=== PATIENT | female | born 1950 | race Caucasian/White ===

== ENCOUNTER 2018-01-22 05:28 | Inpatient (IN) ==
[2018-01-22] MEDS ORDERED: Chlorhexidine 4% Topical 120 APPLIC/120 ML Bottle TOPICAL SCH (06:00)
[2018-01-22] MEDS ORDERED: Vancomycin Inj 1 GM/200 ML PIGGYBACK IV.SIG SCH (06:00)
[2018-01-22] MEDS ORDERED: ceFAZolin 2 GM Premix Inj 2 GM/50 ML PIGGYBACK IV.SIG SCH (06:00)
[2018-01-22] MEDS ORDERED: Sodium Chlor 0.9% Inj 500 ML IV.SIG SCH (06:00)
[2018-01-22] MEDS ORDERED: Metoprolol Tartrate 25 MG Tablet PO SCH (06:00)
[2018-01-22] MEDS ORDERED: Chlorhexidine Gluconate 2% 1 Pack (2 Cloths) TOPICAL SCH (06:00)
[2018-01-22] MEDS ORDERED: Bupivacaine/Dextrose 0.75% Inj 2 ML Ampul ONE (07:08)
[2018-01-22] MEDS ORDERED: Bupivacaine Liposomal PF 1.3% Inj 20 ML Vial ONE (07:22)
[2018-01-22] MEDS ORDERED: TRANEXAMIC ACID IV.SIG SCH ×2 (07:30→10:30)
[2018-01-22] MEDS ORDERED: ceFAZolin Inj 2,000 MG in Sodium Chlor 0.9% Inj 100 ML IV.SIG SCH (07:30)
[2018-01-22] MEDS ORDERED: SODIUM CHLOR 0.9% IV.SIG SCH ×2 (07:30→10:30)
[2018-01-22] MEDS ORDERED: Sodium Chlor 0.9% Inj 40 ML, Bupivacaine Liposo PF 1.3% Inj 20 ML P-ARTICULR SCH ×2 (07:30)
[2018-01-22] MEDS ORDERED: Bupivacaine/Epinephrine 0.5% Inj 50 ML Vial ONE (07:51)
--- NOTE | 2018-01-22 09:53 | P.OP ---
- Preoperative Diagnosis (1) Osteoarthritis of left knee - Postoperative Diagnosis (1) Osteoarthritis of left knee Date of procedure: 01/22/18 Procedure: Left total knee arthroplasty Implants: Depuy Attune size 6 cemented femoral stem, size 5 cemented rotating platform tibial base with a size 6 rotating platform tibial insert and a 35 mm cemented patellar dome Anesthesia: jason WEI Surgeon: Julio Awan MD Cabin Crew: Liz Toscano (Ashley) Cabin Crew: Liz Toscano PA-C (Ashley) The surgical procedure was assisted by my physician's radiology practitioner assistant. Her presence was necessary throughout the case for manipulation and positioning of the surgical extremity. My PA was assisting me throughout the duration of this procedure. The skill set of the physician radiology practitioner assistant was medically necessary to complete this procedure. During the surgical case the surgical technician was working at the back table and the physician radiology practitioner assistant was directly assisting me. Estimated blood loss (mL): 100 Pathology: none sent Operation and Findings: Indications: This 67-year-old female has a long progressive history of bilateral knee pain. She has had several treatment modalities. She is severely limited in her activity and now is unresponsive to nonoperative measures. X-rays are consistent with advanced osteoarthritis. Given the alternatives to treatment she presents for a left total knee arthroplasty which is the more symptomatic. Procedure and findings: The patient was taken to the operative suite and after undergoing an adequate level of general anesthesia was kept supine on the operating table. Preoperative antibiotics consisted of Ancef 2 g and vancomycin 1 g IV. The left lower extremity was then prepped and draped in usual sterile fashion with alcohol and Hibiclens. A standard anterior approach the knee was made with incision centered over the medial one third of the patella. This was carried down through skin and subcutaneous tense tissue with a knife. The quadricep tendon was identified proximally and the patellar tendon distally. A medial parapatellar arthrotomy was made. A small joint effusion was evacuated. Upon entering the knee joint is noted to be marked degenerative changes which were tricompartmental in nature. The remnant of the ACL was excised. The menisci were excised. Osteophytes were removed. Attention was first focused on the distal femur where an intramedullary guide was used to make a 5 valgus cut. A sizing jig was then applied and a 6 selected. With the cutting block in place the anterior, posterior and chamfer cuts were made. Attention was then focused on the proximal tibia. An extramedullary guide was used. Approximately 4 mm of bone was resected. The varus/valgus alignment was also checked with an extramedullary guide. The tibia was then sized to a 5. A freehand technique was utilized on the patella. This was sized to a 35. Drill holes were made and trial components placed. The 6 mm tibial bearing gave the best range of motion and stability. There was slight lateral patellar tracking. A lateral release was completed with an electrocautery device. These components were therefore selected. The femoral drill holes were made. The tibial cement punches were made. The wound was thoroughly irrigated with pulse lavage. Bone cement was prepared on the back table. After thorough drying it was applied to the proximal tibia. The tibial component was then impacted in the place. All excess bone cement was removed. Bone cement was then applied to the distal femur after thorough drying. The femoral component was then impacted in the place. All excess bone cement was removed. A trial tibial insert was then placed. The knee was then placed in full extension for further compression. After thorough drying bone cement was applied to the undersurface of the patella. The patellar button was seated and held with a compression clamp. All excess bone cement was removed. Once the cement had matured good range of motion, patellar tracking and stability was again noted. The size 6 rotating platform tibial insert was then seated. The wound was again thoroughly irrigated with pulse lavage. AutoVac drains were left in place. The incision was closed in layers utilizing #1 Vicryl suture on the extensor mechanism, 0 Vicryl suture on the deep tissue, 2-0 Vicryl suture on the subcutaneous tissue and flores on the skin. Sterile dressings were applied the patient was awakened transferred to the hospital bed and taken to the recovery room in stable condition.
[2018-01-22] MEDS ORDERED: Post-op Orders (for Pharmacy) OTHER STA (09:55)
[2018-01-22] MEDS ORDERED: *Meperidine Inj 25 MG/ML Vial PERIprocedural Use ONLY ONE (09:56)
[2018-01-22] MEDS ORDERED: fentaNYL Citrate Inj 100 MCG/2 ML Ampul ONE (10:00)
[2018-01-22] MEDS ORDERED: Morphine Inj 4 MG/ML Vial ONE (10:00)
[2018-01-22] MEDS ORDERED: Bisacodyl 10 MG Supp RECTAL PRN (10:02)
[2018-01-22] MEDS ORDERED: Morphine Inj 4 MG/ML Vial IV.PUSH PRN (10:02)
[2018-01-22] MEDS ORDERED: Acetaminophen 325 MG Tablet PO PRN (10:02)
[2018-01-22] MEDS ORDERED: hydroCHLOROthiazide 25 MG Tablet PO PRN (10:07)
--- NOTE | 2018-01-22 10:45 | XR ---
EXAM DATE: 01/22/2018 10:40 AM EDT AGE/SEX: 67 years / Female INDICATIONS: Post op left knee surgery. CLINICAL DATA: This is the patient's initial encounter. Patient reports that signs and symptoms have been present for 1 day and indicates a pain score of 6/10. MEDICAL/SURGICAL HISTORY: None. None. COMPARISON: No prior exams available for comparison. FINDINGS: There is previous left total knee replacement. Skin flores anteriorly. Air and fluid in the soft tis sues. Drains are present anteriorly. There is normal alignment. CONCLUSION: Postoperative left total knee replacement. Normal alignment. Electronically signed by: Dutch Valentin MD 01/22/2018 10:44 AM EDT
[2018-01-22] MEDS ORDERED: Glycopyrrolate Inj 1 MG/5 ML Syringe IV.PUSH ONE (12:00)
[2018-01-22] MEDS ORDERED: Lidocaine PF 1% Inj 5 ML Syringe INFILTRATN ONE (12:00)
[2018-01-22] MEDS ORDERED: Neostigmine Inj 5 MG/5 ML Syringe IV.PUSH ONE (12:00)
[2018-01-22] MEDS ORDERED: Ketorolac Inj 30 MG/ML (IVP) Vial IV.PUSH ONE (12:00)
[2018-01-22] MEDS: Tranexamic Acid Inj 1,000 MG in Sodium Chlor 0.9% Inj 100 ML IV.SIG ONE ×2 (13:46→14:06)
--- NOTE | 2018-01-22 15:47 | P.CON ---
History of Present Illness Service: Hospitalist service Consult date: 01/22/18 Requesting Physician: Julio Awan Reason for Consult: Assist with medical management Primary Care Provider: Leon Weems Chief Complaint: s/p Left TKA History of Present Illness: This is a 67-year-old female with a past medical history significant for chronic diverticulitis status post previous colorectal surgery with postop course complicated by sepsis and C diff infection in 2016 and osteoarthritis of the left knee who has tried and failed numerous attempts at conservative therapy and underwent an elective left total knee replacement performed by Dr. Awan earlier today. Hospitalist services have been consulted to assist with ongoing medical management. Patient seen and examined. Patient states she feels "yucky". She denies any specific complaints. She denies any fever or chills. She denies any nausea, vomiting or abdominal pain. She denies any chest pain or shortness of breath. She denies any dysuria or diarrhea. Review of Systems All other systems reviewed negative except as stated in HPI PMFSH - History History Provided By: Patient - Medical History Medical History: Medical History (Last Reviewed 01/22/18 @ 09:25 by Ana Luisa Paredes) Anxiety Arthritis Dermatologic problem History of Clostridium difficile infection History of anesthesia reaction History of diverticulitis Hx of melanoma of skin Hx of peritonitis Pain in right knee Pain, joint, knee, left Wears eyeglasses - Surgical History Surgical History: Surgical History (Last Updated 01/22/18 @ 15:38 by Deandra Flores) Status post blepharoplasty of both eyes History of colon resection - Family History Family History: Family History (Last Updated 01/22/18 @ 15:38 by Deandra Flores) Father Brain cancer - Tobacco History Second Hand Smoke Exposure: No Smoking Status: Never smoker - Alcohol History How Often Do You Have a Drink Containing Alcohol: 2 to 3 times a week - Substance Use History Substance History: No History of Abuse - Travel History Recent Travel in the [place] Within the Last 8 Weeks: No Recent Travel Out of the Country Within the Last 8 Weeks: No Medications and Allergies Active Medications: Active Medications Acetaminophen (Tylenol) 650 mg PO Q6H PRN PRN Reason: PAIN LESS THAN 5 ON SCALE Al Hydrox/Mg Hydrox/Simethicone (Mag-Al Plus Susp Liq) 30 ml PO Q6H PRN PRN Reason: INDIGESTION Al Hydroxide/Mg Hydroxide (Milk Of Magnesia Liq) 30 ml PO BID PRN PRN Reason: Mild Constipation Aspirin (Aspirin Chew) 81 mg PO BID [facility] Bisacodyl (Dulcolax Supp) 10 mg RECTAL DAILY PRN PRN Reason: SEVERE CONSITIPATION Chlorhexidine Gluconate (Chlorhexidine 2% Cloth) 3 pack TOPICAL BRICK POINTER [facility] Stop: 01/25/18 05:57 Last Admin: 01/22/18 05:45 Dose: 3 pack Chlorhexidine Gluconate (Hibiclens 4% Topical) 1 applicatio TOPICAL ONCE [facility] Stop: 01/26/18 05:59 Diphenhydramine HCl (Benadryl) 25 mg PO Q6H PRN PRN Reason: ITCHING Hydrochlorothiazide (Hydrodiuril) 25 mg PO DAILY PRN PRN Reason: RETENTION Lactated Ringer's (Lr 1000 Ml Inj) 1,000 mls @ 30 mls/hr IV.SIG .Q24H [facility] Stop: 01/25/18 05:57 Last Admin: 01/22/18 06:10 Dose: 30 mls/hr Sodium Chloride (Ns Inj) 500 mls @ 30 mls/hr IV.SIG .Q10H [facility] Stop: 01/25/18 05:57 Vancomycin/Sodium Chloride (Vancomycin Inj) 1 gm in 200 mls @ 200 mls/hr IV.SIG BRICK POINTER [facility] Stop: 01/26/18 05:59 Last Infusion: 01/22/18 09:14 Dose: Infused Cefazolin Sodium 2,000 mg/ (Sodium Chloride) 100 mls @ 100 mls/hr IV.SIG BRICK POINTER [facility] Last Infusion: 01/22/18 09:15 Dose: Infused Cefazolin Sodium 2,000 mg/ (Sodium Chloride) 100 mls @ 200 mls/hr IV.SIG Q6H [facility] Stop: 01/23/18 01:29 Lactated Ringer's (Lr 1000 Ml Inj) 1,000 mls @ 80 mls/hr IV.CONT .[id number] [facility] Last Admin: 01/22/18 10:30 Dose: 80 mls/hr Lactulose (Lactulose Liq) 30 ml PO DAILY PRN PRN Reason: SEVERE CONSITIPATION Metoprolol Tartrate (Lopressor) 25 mg PO BRICK POINTER [facility] Stop: 01/25/18 05:57 Miscellaneous Information (Misc Nursing Information) 1 each OTHER UNSCH PRN PRN Reason: SEE LABEL COMMENTS Stop: 01/23/18 09:54 Morphine Sulfate (Morphine Inj) 4 mg IV.PUSH Q3H PRN PRN Reason: BREAKTHROUGH PAIN Nystatin/Triamcinolone Acetonide (Mycolog Ii Cream) 1 applicatio TOPICAL DAILY PRN PRN Reason: Rash Ondansetron HCl (Zofran Inj) 4 mg IV.PUSH Q6H PRN PRN Reason: NAUSEA OR VOMITING Oxycodone/Acetaminophen (Percocet 10/325 Mg) 1 tab PO Q4H PRN PRN Reason: Pain Less Than 5 On Scale Oxycodone/Acetaminophen (Percocet 5/325 Mg) 1 tab PO Q4H PRN PRN Reason: PAIN LESS THAN 5 ON SCALE Pt Own Med ( Metronidazole Topical ) 0 each TOPICAL DAILY [facility] Pt Own Med( Miconazole Nitrate [ Zeasorb Af] 1 each TOPICAL DAILY [facility] Pt Own Med ( Saccharomyces Boulardii ( Florastor 250 Mg) 0 each PO BID [facility] Povidone Iodine (Betadine 5% Antisepsis Kit) 1 applicatio EACH NARE BRICK POINTER [facility] Stop: 01/25/18 05:57 Last Admin: 01/22/18 06:44 Dose: 1 applicatio Senna/Docusate Sodium (Kirsten-Colace) 1 tab PO BID [facility] Sennosides (Senokot) 17.2 mg PO BID PRN PRN Reason: Moderate Constipation Sodium Chloride (Ns Flush) 2 ml IV.FLUSH PRN PRN PRN Reason: FLUSH AFTER USING IV ACCESS Sodium Chloride (Ns Flush) 2 ml IV.FLUSH BID [facility] Temazepam (Restoril) 15 mg PO HS PRN PRN Reason: INSOMNIA Allergies Allergy/AdvReac Type Severity Reaction Status Date / Time No Known Allergies Allergy Unverified 01/22/18 05:49 Home Medications Medication Instructions Recorded Confirmed Type Saccharomyces boulardii [Florastor] 250 mg PO BID 01/04/18 01/22/18 History aspirin [Aspirin Low Dose] 81 mg PO DAILY 01/04/18 01/22/18 History hydrochlorothiazide 25 mg PO DAILY PRN 01/04/18 01/22/18 History metronidazole 1 applic TOPICAL DAILY 01/04/18 01/22/18 History miconazole nitrate [Zeasorb AF] 1 applic TOPICAL DAILY 01/04/18 01/22/18 History nystatin-triamcinolone 1 applic TOPICAL DAILY PRN 01/04/18 01/22/18 History Physical Exam Vital signs: Vital Signs 01/22/18 06:12 01/22/18 07:03 01/22/18 09:52 Temperature 97.4 F L 98.2 F Pulse Rate 75 63 80 Respiratory Rate 16 16 Blood Pressure 184/88 H Pulse Oximetry 95 97 98 01/22/18 10:00 01/22/18 10:15 01/22/18 10:30 Temperature Pulse Rate 74 56 L 58 L Respiratory Rate 16 16 16 Blood Pressure 182/84 H 159/74 H 162/77 H Pulse Oximetry 96 95 95 01/22/18 10:45 01/22/18 11:00 Temperature Pulse Rate 62 60 Respiratory Rate 16 16 Blood Pressure 163/75 H 151/72 H Pulse Oximetry 95 97 Intake & Output 01/21/18 01/22/18 01/22/18 18:59 06:59 18:59 Intake Total 1309.93 / 1309.93 Output Total 50 / 50 Balance 1259.93 / 1259.93 Weight 99.3 kg Intake: IV 409.93 / 409.93 Cyklokapron Inj 993 MG In NS 109.93 / 109.93 Inj 100 ML @ 200 mls/hr IV.SIG ONCE [facility] Rx#:[id number] Vancomycin Inj 1 gm In 200 ml @ 200 / 200 200 mls/hr IV.SIG [facility] Rx#:[id number] Ancef Inj 2,000 MG In NS Inj 100 / 100 100 ML @ 100 mls/hr IV.SIG BR[facility]INTER [facility] Rx#:[id number] Anesthesia Amount 900 / 900 Output: Estimated Blood Loss 50 / 50 Other: Weight On Admission 99.3 kg Narrative: GENERAL: WDWN overweight female patient, INAD. Awake and alert. Appears comfortable. SKIN: Warm and dry. No generalized rash. HEAD: Atraumatic. Normocephalic. EYES: Pupils equal and round. No scleral icterus. No injection or drainage. ENT: No nasal bleeding or discharge. Mucous membranes pink and moist. NECK: Trachea midline. No JVD. CARDIOVASCULAR: Regular rate and rhythm. No murmur auscultated. RESPIRATORY: No accessory muscle use. Clear to auscultation anteriorly. Breath sounds equal bilaterally. GASTROINTESTINAL: Abdomen soft, non-tender, nondistended. Hepatic and splenic margins not palpable. MUSCULOSKELETAL: LLE s/p left TKA, postop dressing and drain in place. NV intact distally. NEUROLOGICAL: Awake and alert. No obvious cranial nerve deficits. Motor grossly within normal limits. No focal neurologic findings appreciated. Normal speech. PSYCHIATRIC: Appropriate mood and affect; insight and judgment normal. Assessment and Plan - Assessment (1) Status post total left knee replacement Code(s): Z96.652 - Presence of left artificial knee joint Status: Acute (2) Osteoarthritis of left knee Code(s): M17.12 - Unilateral primary osteoarthritis, left knee Status: Acute - Plan 67yo female with OA left knee s/p elective left TKA: Osteoarthritis of the left knee, failed attempts at conservative management, status post elective left total knee replacement -Management per orthopedic service -Pain management with bowel regimen -Monitor CBC and electrolytes postoperatively -Monitor wound for healing -PT Hypertensive Patient denies a hx of HTN but states she has elevated BP when in the hospital/ white coat syndrome. States she takes HCTZ prn at home. BP elevated 151/72 -Clonidine prn with parameters -Continue to monitor BP and adjust treatment accordingly Hx of diverticulitis s/p colon resection complicated by C diff sepsis related infection -Continue patient on home dose of probiotics DVT prophylaxis -81mg BID per orthopedic service Thank you very kindly for allowing us to assist in the care of this pleasant patient. We will continue to follow along with you. Code Status: Full Discussed Condition With: patient, Dr. Hilton Discharge Planning: Discharge planning per orthopedic service
[2018-01-22] MEDS ORDERED: SACCHAROMYCES BOULARDII PO SCH (21:00)
[2018-01-22] MEDS ORDERED: Temazepam 15 MG Capsule PO PRN (21:00)
[2018-01-22] MEDS: oxyCODONE/Acetaminophen 10/325 Tablet PO PRN (22:15)
[2018-01-23] MEDS: oxyCODONE/Acetaminophen 10/325 Tablet PO PRN ×2 (02:27→12:16)
[2018-01-23 06:41] LABS: Baso % (Auto) 0.2 % (0.0-2.0); Eos % (Auto) 0.1 % (0.0-4.0); Hematocrit 33.5 % (35.0-46.0); Hemoglobin 11.4 gm/dL (11.6-15.3); Lymph # (Auto) 1.3 th/mm3 (1.0-4.8); Lymph % (Auto) 15.1 % (9.0-44.0); Mean Corpuscular Hemoglobin 32.8 pg (27.0-34.0); Mean Corpuscular Volume 96.5 fL (80.0-100.0); Mean Platelet Volume 7.5 fL (7.0-11.0); Mono # (Auto) 1.1 th/mm3 (0.0-0.9); Mono % (Auto) 12.8 % (0.0-8.0); Neut % (Auto) 71.8 % (16.0-70.0); Platelet Count 162 th/mm3 (150-450); Red Blood Count 3.47 mil/mm3 (4.00-5.30); Red Cell Distribution Width 13.2 % (11.6-17.2); White Blood Count 8.4 th/mm3 (4.0-11.0)
[2018-01-23 07:01] LABS: Anion Gap 8 meq/L (5-15); Aspartate Aminotransferase 13 U/L (15-37); Blood Urea Nitrogen 11 mg/dL (7-18); Calcium 7.8 mg/dL (8.5-10.1); Carbon Dioxide 27.3 meq/L (21.0-32.0); Chloride 104 meq/L (98-107); Glomerular Filtration Rate Greater Than 89 mL/min (>89); Glucose,Random 101 mg/dL (74-106); Sodium 139 meq/L (136-145)
[2018-01-23 07:02] LABS: Alanine Aminotransferase 14 U/L (10-53)
[2018-01-23 07:04] LABS: Alkaline Phosphatase 54 U/L (45-117); Total Protein 5.7 g/dL (6.4-8.2)
--- NOTE | 2018-01-23 08:01 | P.PNOP ---
Subjective Interval history: POD #1 Left total knee arthroplasty Pt laying in bed awake and alert. Admits left knee pain well controlled. Interest in rehab upon discharge. No other complaints. Physical Exam Vital signs: Vital Signs 01/22/18 09:52 01/22/18 10:00 01/22/18 10:15 Temperature 98.2 F Pulse Rate 80 74 56 L Respiratory Rate 16 16 16 Blood Pressure 184/88 H 182/84 H 159/74 H Pulse Oximetry 98 96 95 01/22/18 10:30 01/22/18 10:45 01/22/18 11:00 Temperature Pulse Rate 58 L 62 60 Respiratory Rate 16 16 16 Blood Pressure 162/77 H 163/75 H 151/72 H Pulse Oximetry 95 95 97 01/22/18 16:00 01/22/18 19:24 01/22/18 22:58 Temperature 97.4 F L 97.4 F L 98.5 F Pulse Rate 50 L 67 63 Respiratory Rate 18 18 18 Blood Pressure 124/62 123/61 120/64 Pulse Oximetry 96 96 97 01/23/18 04:00 01/23/18 05:10 Temperature 97.9 F Pulse Rate 71 Respiratory Rate 15 18 Blood Pressure 127/60 Pulse Oximetry 96 Intake & Output 01/22/18 01/23/18 01/23/18 18:59 06:59 18:59 Intake Total 1409.93 / 1409.93 580 / 580 Output Total 50 / 50 Balance 1359.93 / 1359.93 580 / 580 Weight 99 kg 99 kg Intake: IV 509.93 / 509.93 100 / 100 Cyklokapron Inj 993 MG In NS 109.93 / 109.93 Inj 100 ML @ 200 mls/hr IV.SIG ONCE [facility] Rx#:[id number] Vancomycin Inj 1 gm In 200 ml @ 200 / 200 200 mls/hr IV.SIG [facility]PATOLOG[facility] Rx#:[id number] Ancef Inj 2,000 MG In NS Inj 100 / 100 100 ML @ 100 mls/hr IV.SIG [facility] Rx#:[id number] Ancef Inj 2,000 MG In NS Inj 80 100 / 100 100 / 100 ML @ 200 mls/hr IV.SIG Q6H [facility] Rx#:[id number] Oral 480 / 480 Anesthesia Amount 900 / 900 Output: Estimated Blood Loss 50 / 50 Other: # Voids 2 Date of Last Bowel Movement 01/21/18 # Bowel Movements 0 Narrative: Dressing dry and intact. Brace in place. + drain, Tender to palpation with mild swelling around incision site. Appropriate range of motion expected post operatively. Freely able to move distal digits. No calf pain. Negative Lea's sign. Good cap refill. 2+ pedal pulses. Neurovascular intact. Results - Labs CBC & Chem 7: 01/23/18 04:56 01/23/18 04:56 Laboratory Results - last 24 hr 01/23/18 01/23/18 04:56 04:56 WBC 8.4 RBC 3.47 L Hgb 11.4 L Hct 33.5 L MCV 96.5 MCH 32.8 MCHC 34.0 RDW 13.2 Plt Count 162 D MPV 7.5 Neut % (Auto) 71.8 H Lymph % (Auto) 15.1 [place] % (Auto) 12.8 H Eos % (Auto) 0.1 Baso % (Auto) 0.2 Neut # (Auto) 6.0 Lymph # (Auto) 1.3 [place] # (Auto) 1.1 H Eos # (Auto) 0.0 Baso # (Auto) 0.0 WBC Differential . Differential Comment Auto diff final Sodium 139 Potassium 4.0 Chloride 104 Carbon Dioxide 27.3 Anion Gap 8 BUN 11 Creatinine 0.60 Estimated GFR Greater than 89 Random Glucose 101 Calcium 7.8 L Total Bilirubin 0.8 AST 13 L ALT 14 Alkaline Phosphatase 54 Total Protein 5.7 L Albumin 3.0 L - Imaging Impressions Knee X-Ray 01/22/18 00:00 CONCLUSION: Postoperative left total knee replacement. Normal alignment. - Procedures Left total knee arthroplasty 01/22/18 Assessment and Plan - Ortho Post Op Day # 1 - Assessment and Plan POD #1 Left total knee arthroplasty Ortho status stable Progress rehab, WBAT No change dressing - ok to remove ama wrap POD #2 Ok to d/c drain with output is <30cc a shift. ASA 81mg BID for DVT prophylaxis, SCDs Discharge planning, most likely to rehab
[2018-01-23] MEDS: Senna/Docusate Sodium 8.6/50 MG Tablet PO SCH ×2 (08:16→08:39)
[2018-01-23] MEDS ORDERED: MICONAZOLE NITRATE TOPICAL SCH (09:00)
[2018-01-23] MEDS ORDERED: METRONIDAZOLE TOPICAL SCH (09:00)
--- NOTE | 2018-01-23 12:33 | P.PN ---
Subjective Interval history: Follow-up visit for left total knee arthroplasty and HTN. Patient is seen and examined sitting up in bed and appears to be in no acute distress. She reports left knee pain, feels as though she is not progressing as much as she should due to pain. Nurse also also reported the patient is not taking stool softeners , extensive discussion with patient regarding reasoning behind stool softener along with pain medication. Patient reports that she normally does not take any kind of medication at home and would like to keep this way. She denies any fevers, chills, nausea, vomiting, diarrhea, headache, dizziness, cough, shortness of breath or chest pain. Physical Exam Vital signs: Vital Signs 01/22/18 16:00 01/22/18 19:24 01/22/18 22:58 Temperature 36.3 C L 36.3 C L 36.9 C Pulse Rate 50 L 67 63 Respiratory Rate 18 18 18 Blood Pressure 124/62 123/61 120/64 Pulse Oximetry 96 96 97 01/23/18 04:00 01/23/18 05:10 01/23/18 08:00 Temperature 36.6 C 36.7 C Pulse Rate 71 82 Respiratory Rate 15 18 18 Blood Pressure 127/60 148/76 H Pulse Oximetry 96 97 Intake & Output 01/22/18 01/23/18 01/23/18 18:59 06:59 18:59 Intake Total 1409.93 / 1409.93 580 / 580 Output Total 50 / 50 60 / 60 Balance 1359.93 / 1359.93 520 / 520 Weight 99 kg 99 kg Intake: IV 509.93 / 509.93 100 / 100 Cyklokapron Inj 993 MG In NS 109.93 / 109.93 Inj 100 ML @ 200 mls/hr IV.SIG ONCE [facility] Rx#:[id number] Vancomycin Inj 1 gm In 200 ml @ 200 / 200 200 mls/hr IV.SIG [facility] Rx#:[id number] Ancef Inj 2,000 MG In NS Inj 100 / 100 100 ML @ 100 mls/hr IV.SIG [facility] Rx#:[id number] Ancef Inj 2,000 MG In NS Inj 80 100 / 100 100 / 100 ML @ 200 mls/hr IV.SIG Q6H [facility] Rx#:[id number] Oral 480 / 480 Anesthesia Amount 900 / 900 Output: Estimated Blood Loss 50 / 50 Wound Drainage 60 / 60 # 1 Left Knee 60 / 60 Other: # Voids 2 Date of Last Bowel Movement 01/21/18 # Bowel Movements 0 Narrative: GENERAL: Well-developed, well-nourished female in no acute distress. SKIN: Warm and dry. HEAD: Atraumatic. Normocephalic. EYES: Pupils equal and round. No scleral icterus. No injection or drainage. ENT: No nasal bleeding or discharge. Mucous membranes pink and moist. NECK: Trachea midline. No JVD. CARDIOVASCULAR: Regular rate and rhythm. No murmur auscultated. RESPIRATORY: No accessory muscle use. Clear to auscultation anteriorly. Breath sounds equal bilaterally. GASTROINTESTINAL: Abdomen soft, non-tender, nondistended. + MUSCULOSKELETAL: LLE s/p left knee/leg wrapped with drain in place. NEUROLOGICAL: Awake and alert. No obvious cranial nerve deficits. Motor grossly within normal limits. No focal neurologic findings appreciated. Normal speech. PSYCHIATRIC: Appropriate mood and affect; insight and judgment normal. Results - Labs CBC & Chem 7: 01/23/18 04:56 01/23/18 04:56 Laboratory Results - last 24 hr 01/23/18 01/23/18 04:56 04:56 WBC 8.4 RBC 3.47 L Hgb 11.4 L Hct 33.5 L MCV 96.5 MCH 32.8 MCHC 34.0 RDW 13.2 Plt Count 162 D MPV 7.5 Neut % (Auto) 71.8 H Lymph % (Auto) 15.1 [place] % (Auto) 12.8 H Eos % (Auto) 0.1 Baso % (Auto) 0.2 Neut # (Auto) 6.0 Lymph # (Auto) 1.3 [place] # (Auto) 1.1 H Eos # (Auto) 0.0 Baso # (Auto) 0.0 WBC Differential . Differential Comment Auto diff final Sodium 139 Potassium 4.0 Chloride 104 Carbon Dioxide 27.3 Anion Gap 8 BUN 11 Creatinine 0.60 Estimated GFR Greater than 89 Random Glucose 101 Calcium 7.8 L Total Bilirubin 0.8 AST 13 L ALT 14 Alkaline Phosphatase 54 Total Protein 5.7 L Albumin 3.0 L - Procedures Left total knee arthroplasty 01/22/18 Assessment and Plan - Assessment (1) Status post total left knee replacement Code(s): Z96.652 - Presence of left artificial knee joint Status: Acute (2) Osteoarthritis of left knee Code(s): M17.12 - Unilateral primary osteoarthritis, left knee Status: Acute - Plan 67yo female with OA left knee s/p elective left TKA: Osteoarthritis of the left knee, failed attempts at conservative management, status post elective left total knee replacement -Management per orthopedic service -Pain management with bowel regimen, oxycodone switched to hydrocodone, encourage patient to use stool softeners -H&H and BMP stable -Monitor wound for healing -PT Hypertensive Patient denies a hx of HTN but states she has elevated BP when in the hospital/ white coat syndrome. States she takes HCTZ prn at home. -Clonidine prn with parameters -Continue to monitor BP and adjust treatment accordingly -BP this morning mildly elevated although better compared to yesterday Hx of diverticulitis s/p colon resection complicated by C diff sepsis related infection -Continue patient on home dose of probiotics DVT prophylaxis -81mg BID per orthopedic service Discussed Condition With: Discussed with patient and RN.
[2018-01-24 05:26] LABS: Hematocrit 33.2 % (35.0-46.0); Hemoglobin 11.1 gm/dL (11.6-15.3)
--- NOTE | 2018-01-24 07:31 | P.PNOP ---
Subjective Interval history: Postoperative day 2 left total knee arthroplasty. The patient is awake and alert and answers questions appropriately. She has pain that limits her mobility. She has no other specific complaint. Physical Exam Vital signs: Vital Signs 01/23/18 08:00 01/23/18 12:00 01/23/18 16:00 Temperature 98.1 F 98.3 F 98.3 F Pulse Rate 82 89 73 Respiratory Rate 18 18 18 Blood Pressure 148/76 H 148/72 H 168/79 H Pulse Oximetry 97 95 95 01/23/18 20:00 01/24/18 00:00 01/24/18 00:30 Temperature 98.2 F 98.5 F Pulse Rate 80 93 H Respiratory Rate 18 16 15 Blood Pressure 159/75 H 156/72 H Pulse Oximetry 96 95 Intake & Output 01/23/18 01/24/18 01/24/18 18:59 06:59 18:59 Intake Total 720 / 720 Balance 720 / 720 Intake: Oral 720 / 720 Other: # Voids 3 Date of Last Bowel Movement 01/21/18 01/21/18 Narrative: GENERAL: Well-developed, well-nourished female in no acute distress. SKIN: Warm and dry MUSCULOSKELETAL: LLE s/p left knee/leg wrapped with drain in place. There is minimal swelling. The drain is in place. She has a negative Homans sign. NEUROLOGICAL: Awake and alert. No obvious cranial nerve deficits. Motor grossly within normal limits. No focal neurologic findings appreciated. Normal speech. PSYCHIATRIC: Appropriate mood and affect; insight and judgment normal. Results - Labs CBC & Chem 7: 01/24/18 03:40 01/23/18 04:56 Laboratory Results - last 24 hr 01/24/18 03:40 Hgb 11.1 L Hct 33.2 L - Procedures Left total knee arthroplasty 01/22/18 Assessment and Plan - Ortho Post Op Day # 2 - Problem List (1) Osteoarthritis of left knee Code(s): M17.12 - Unilateral primary osteoarthritis, left knee Status: Acute (2) Status post total left knee replacement Code(s): Z96.652 - Presence of left artificial knee joint Status: Acute - Assessment and Plan POD #1 Left total knee arthroplasty Ortho status stable Progress rehab, WBAT No change dressing - ok to remove ama wrap POD #2 Ok to d/c drain. ASA 81mg BID for DVT prophylaxis, SCDs Discharge planning, most likely to rehab 01/25
[2018-01-24] MEDS: Senna/Docusate Sodium 8.6/50 MG Tablet PO SCH ×3 (07:41→20:35)
--- NOTE | 2018-01-24 12:52 | P.PN ---
Subjective Interval history: Follow-up visit for left total knee arthroplasty and HTN. Patient is seen and examined resting in bed in no acute distress. She denies any fevers, chills, N/V /D, cough or SOB. Patient reports that her pain is better today with the changes in pain medication. She also has not had a BM since her surgery, she was agreeable to taking stool softener today. Physical Exam Vital signs: Vital Signs 01/23/18 16:00 01/23/18 20:00 01/24/18 00:00 Temperature 36.8 C 36.8 C 36.9 C Pulse Rate 73 80 93 H Respiratory Rate 18 18 16 Blood Pressure 168/79 H 159/75 H 156/72 H Pulse Oximetry 95 96 95 01/24/18 00:30 01/24/18 08:00 Temperature 36.8 C Pulse Rate 88 Respiratory Rate 15 18 Blood Pressure 146/70 H Pulse Oximetry 93 L Intake & Output 01/23/18 01/24/18 01/24/18 18:59 06:59 18:59 Intake Total 720 / 720 Balance 720 / 720 Intake: Oral 720 / 720 Other: # Voids 3 Date of Last Bowel Movement 01/21/18 01/21/18 01/21/18 Narrative: GENERAL: Well-developed, well-nourished female in no acute distress. SKIN: Warm and dry. HEAD: Atraumatic. Normocephalic. EYES: Pupils equal and round. No scleral icterus. No injection or drainage. ENT: No nasal bleeding or discharge. Mucous membranes pink and moist. NECK: Trachea midline. No JVD. CARDIOVASCULAR: Regular rate and rhythm. No murmur auscultated. RESPIRATORY: No accessory muscle use. Clear to auscultation anteriorly. Breath sounds equal bilaterally. GASTROINTESTINAL: Abdomen soft, non-tender, nondistended. + bowel sounds. MUSCULOSKELETAL: Left knee with ecchymosis on latera aspect, trace edema, Dry and intact dressing. NEUROLOGICAL: Awake and alert. No obvious cranial nerve deficits. Motor grossly within normal limits. No focal neurologic findings appreciated. Normal speech. PSYCHIATRIC: Appropriate mood and affect; insight and judgment normal. Results - Labs CBC & Chem 7: 01/24/18 03:40 01/23/18 04:56 Laboratory Results - last 24 hr 01/24/18 03:40 Hgb 11.1 L Hct 33.2 L - Procedures Left total knee arthroplasty 01/22/18 Assessment and Plan - Assessment (1) Status post total left knee replacement Code(s): Z96.652 - Presence of left artificial knee joint Status: Acute (2) Osteoarthritis of left knee Code(s): M17.12 - Unilateral primary osteoarthritis, left knee Status: Acute - Plan 67yo female with OA left knee s/p elective left TKA: Osteoarthritis of the left knee, failed attempts at conservative management, status post elective left total knee replacement -Management per orthopedic service -Pain management with bowel regimen, oxycodone switched to hydrocodone, encourage patient to use stool softeners -H&H and BMP stable -Monitor wound for healing -PT Hypertensive Patient denies a hx of HTN but states she has elevated BP when in the hospital/ white coat syndrome. States she takes HCTZ prn at home.\ - BP on the high side start HCTZ 25mg daily -Clonidine prn with parameters -Continue to monitor BP and adjust treatment accordingly Hx of diverticulitis s/p colon resection complicated by C diff sepsis related infection -Continue patient on home dose of probiotics DVT prophylaxis -81mg BID per orthopedic service
[2018-01-24] MEDS: Aluminum/Magnesium/Simethacone Susp 30 ML UDC PO PRN (17:46)
--- NOTE | 2018-01-25 08:41 | P.PNOP ---
Subjective Interval history: POD #3 Left total knee arthroplasty Pt is awake and alert and answering questions appropriately. Pt feels ready for d/c to rehab today. All questions were answered. Physical Exam Vital signs: Vital Signs 01/24/18 12:00 01/24/18 15:36 01/24/18 18:45 Temperature 97.3 F L 98.6 F Pulse Rate 75 80 Respiratory Rate 22 24 18 Blood Pressure 164/88 H 149/80 H Pulse Oximetry 96 96 01/24/18 20:00 01/25/18 00:00 01/25/18 08:00 Temperature 99.2 F 98.2 F 98.0 F Pulse Rate 85 87 80 Respiratory Rate 20 18 12 Blood Pressure 145/76 H 163/84 H 155/84 H Pulse Oximetry 98 18 L 93 L Intake & Output 01/24/18 01/25/18 01/25/18 18:59 06:59 18:59 Other: # Voids 2 Date of Last Bowel Movement 01/21/18 # Bowel Movements 0 Narrative: Dressing dry and intact. Brace in place. Tender to palpation with mild swelling around incision site. Appropriate range of motion expected post operatively. Freely able to move distal digits. No calf pain. Negative Lea's sign. Good cap refill. 2+ pedal pulses. Neurovascular intact. Results - Labs CBC & Chem 7: 01/24/18 03:40 01/23/18 04:56 - Procedures Left total knee arthroplasty 01/22/18 Assessment and Plan - Ortho Post Op Day # 3 - Problem List (1) Osteoarthritis of left knee Code(s): M17.12 - Unilateral primary osteoarthritis, left knee Status: Acute (2) Status post total left knee replacement Code(s): Z96.652 - Presence of left artificial knee joint Status: Acute - Assessment and Plan POD #3 Left total knee arthroplasty Ortho status stable Progress rehab, WBAT No change dressing ASA 81mg BID for DVT prophylaxis, SCDs Clear for discharge from an orthopedic standpoint to rehab
--- NOTE | 2018-01-25 08:47 | P.DS ---
Date of admission: 01/22/18 05:28 Primary care physician: Leon Weems Attending physician on discharge: Julio Awan Anticipated date of discharge: 01/25/18 Brief History from admission: left total knee arthroplasty DS: Diagnosis - Discharge Diagnosis (1) Osteoarthritis of left knee Status: Acute (2) Status post total left knee replacement Status: Acute DS: Medications - Discharge Medications Prescriptions: aspirin 81 mg PO BID 20 Days #40 tab hydrocodone-acetaminophen 1 tab PO Q4H PRN 7 Days #40 tab PRN Reason: Pain Scale 6 To 10 DS: Summary Hospital Course: On the day of admission the patient was taken to the operating room where the patient underwent left total knee arthroplasty. The patient tolerated the procedure well. For details of operative report please see dictated operative report. The patient was placed on Ancef for infection prophylaxis and Aspirin for DVT prophylaxis. Physical therapy was consulted for discharge planning. The patient will be discharged to a rehab facility it has been arranged. At the time of discharge the patient was afebrile. Incision line noted to be healing well. The patient will be discharged home with Aspirin for DVT prophylaxis and prescribed Hydrocodone for pain. Acute pain exception, E-forcse checked. The patient acknowledges full understanding of plan of treatment and agrees to it. - Time Spent with Patient Total time spent providing and/or coordinating discharge services: Less than 30 minutes - Quality: VTE Deep Vein Thrombosis/Pulmonary Embolism Present on Admission: No Exam Vital signs: Vital Signs 01/24/18 12:00 01/24/18 15:36 01/24/18 18:45 Temperature 97.3 F L 98.6 F Pulse Rate 75 80 Respiratory Rate 22 24 18 Blood Pressure 164/88 H 149/80 H Pulse Oximetry 96 96 01/24/18 20:00 01/25/18 00:00 01/25/18 08:00 Temperature 99.2 F 98.2 F 98.0 F Pulse Rate 85 87 80 Respiratory Rate 20 18 12 Blood Pressure 145/76 H 163/84 H 155/84 H Pulse Oximetry 98 18 L 93 L Intake & Output 01/24/18 01/25/18 01/25/18 18:59 06:59 18:59 Other: # Voids 2 Date of Last Bowel Movement 01/21/18 # Bowel Movements 0 Narrative: Dressing dry and intact. Brace in place. Tender to palpation with mild swelling around incision site. Appropriate range of motion expected post operatively. Freely able to move distal digits. No calf pain. Negative Lea's sign. Good cap refill. 2+ pedal pulses. Neurovascular intact. Results Procedures completed during hospitalization: Left total knee arthroplasty 01/22/18 - Impressions ITS Impressions Knee X-Ray 01/22/18 00:00 CONCLUSION: Postoperative left total knee replacement. Normal alignment. Discharge Plan - Discharge Disposition Patient Disposition: 62 Rehab Inpatient - Discharge Condition Condition: Good - Discharge Order Discharge Orders: Discharge Order (Routine); Ordered 01/25/18 Ordered By: Liz Toscano (Ashley) - Discharge Details Anticipated Discharge Date: 01/25/18 Discharge Comment: rehab - Physicians Team Attending Provider: Julio Awan Other Providers: [facility],Veronika ; Tyler Brunson DO - Rxs /Orders / Referrals /Forms Prescriptions: New aspirin 81 mg Tablet,Chewable 81 mg PO BID 20 Days Qty: 40 RF: 0 hydrocodone-acetaminophen 10-325 mg Tablet 1 tab PO Q4H PRN (Reason: Pain Scale 6 To 10) 7 Days Qty: 40 RF: 0 Continue hydrochlorothiazide 25 mg Tablet 25 mg PO DAILY PRN (Reason: RETENTION) metronidazole 1 % Gel 1 applic TOPICAL DAILY miconazole nitrate [Zeasorb AF] 2 % Powder 1 applic TOPICAL DAILY nystatin-triamcinolone 100,000-0.1 unit/g-% Cream 1 applic TOPICAL DAILY PRN (Reason: Rash) Saccharomyces boulardii [Florastor] 250 mg Capsule 250 mg PO BID Discontinued aspirin [Aspirin Low Dose] 81 mg Tablet,Delayed Release (Dr/Ec) 81 mg PO DAILY Ambulatory Orders / Order Sets / DME: [employer]mode 3-in-11 (1 each) (Routine) Location: Determined by Patient Ordered By: Liz "Gerri Toscano Walker Folding (Routine) Location: Determined by Patient Ordered By: Liz Toscano (Ashley) Referrals: Leon Weems [Other] - See Instructions Julio Awan MD [Physician] - See Instructions - Discharge Instructions Patient Printed Instructions: Knee Replacement (DC)
[2018-01-25] MEDS ORDERED: hydroCHLOROthiazide 25 MG Tablet PO SCH (09:00)
[2018-01-25] MEDS ORDERED: amLODIPine 5 MG Tablet PO SCH (09:00)
[2018-01-25] MEDS: Aluminum/Magnesium/Simethacone Susp 30 ML UDC PO PRN (09:51)
[2018-01-25] MEDS: Senna/Docusate Sodium 8.6/50 MG Tablet PO SCH (11:43)
[2018-01-25 16:53] VITALS: BP 143/81; PULSE 88; RESP 14; TEMP 98.3; O2SAT 95
== END 2018-01-25 19:05 ==
LOC: HSDI 05:28 → N06 11:25
PROVIDERS: ADMIT Orthopaedic Surgery Sports Medicine; ATTEND Orthopaedic Surgery Sports Medicine

== ENCOUNTER 2018-03-05 09:36 | Inpatient (IN) ==
[2018-03-05] MEDS ORDERED: Sodium Chlor 0.9% Inj 500 ML IV.CONT ONE (10:30)
[2018-03-05] MEDS ORDERED: Metoprolol Tartrate 25 MG Tablet PO ONE (10:30)
[2018-03-05] MEDS ORDERED: Chlorhexidine Gluconate 2% 1 Pack (2 Cloths) TOPICAL ONE (10:30)
[2018-03-05] MEDS ORDERED: Chlorhexidine 4% Topical 120 APPLIC/120 ML Bottle TOPICAL SCH (10:30)
[2018-03-05] MEDS ORDERED: ceFAZolin 2 GM Premix Inj 2 GM/100 ML BAG IV.SIG ONE (10:34)
[2018-03-05] MEDS ORDERED: Bupivacaine Liposomal PF 1.3% Inj 20 ML Vial ONE (10:55)
[2018-03-05] MEDS ORDERED: ceFAZolin 2 GM IV; once IV.SIG SCH (11:00)
[2018-03-05] MEDS ORDERED: Tranexamic Acid Inj 1,000 MG in Sodium Chlor 0.9% Inj 100 ML IV.SIG SCH (11:00)
[2018-03-05] MEDS ORDERED: Vancomycin Inj 1,000 MG in Sodium Chlor 0.9% Inj 250 ML IV.SIG SCH (11:00)
[2018-03-05] MEDS ORDERED: hydrALAZINE HCl Inj 20 MG/ML Vial IV.PUSH ONE (11:30)
[2018-03-05] MEDS ORDERED: Glycopyrrolate Inj 1 MG/5 ML Syringe IV.PUSH ONE (11:30)
[2018-03-05] MEDS ORDERED: Neostigmine Inj 5 MG/5 ML Syringe IV.PUSH ONE (11:30)
[2018-03-05] MEDS ORDERED: Sodium Chlor 0.9% Inj 250 ML ONE (11:38)
[2018-03-05] MEDS ORDERED: Bupivacaine/Epinephrine Inj 0.25% 50 ML Vial ONE (11:38)
[2018-03-05] MEDS ORDERED: Sodium Chlor 0.9% Inj 40 ML, Bupivacaine Liposo PF 1.3% Inj 20 ML P-ARTICULR ONE ×2 (12:00)
--- NOTE | 2018-03-05 13:50 | P.OP ---
- Preoperative Diagnosis (1) Osteoarthritis of right knee - Postoperative Diagnosis (1) Osteoarthritis of right knee Date of procedure: 03/05/18 Procedure: Right total knee arthroplasty Implants: Depuy Attune size 6 cemented femoral component, size 6 cemented rotating platform tibial component with a 35 cemented polyethylene patellar button and a 10 mm rotating platform tibial insert Anesthesia: ERIBERTO Surgeon: Julio Awan MD Endless Bed Drum Sander: Liz Toscano PA-C (Ashley) The surgical procedure was assisted by my physician's credit assistant. Her presence was necessary throughout the case for manipulation and positioning of the surgical extremity. My PA was assisting me throughout the duration of this procedure. The skill set of the physician credit assistant was medically necessary to complete this procedure. During the surgical case the fisheries technical officer was working at the back table and the physician credit assistant was directly assisting me. Estimated blood loss (mL): 50 Tourniquet time (min): 90 Pathology: none sent Operation and Findings: Indications: This 67-year-old female has a long history of bilateral knee osteoarthritis. She is now approximately 6 weeks postoperative left total knee arthroplasty with a good result to date. She is very limited secondary to right knee pain. X-rays are consistent with advanced osteoarthritis which is tricompartmental with dmem-cr-quar apposition, osteophyte formation and mild deformity. She is now unresponsive to nonoperative measures and given the alternatives of treatment presents for right total knee arthroplasty. Procedure and findings: The patient was taken to the operative suite and after undergoing an adequate level of general anesthesia was kept supine on the operating table. Preoperative antibiotics consisted of Ancef 2g IV and vancomycin 1g IV. The right lower extremity was then prepped and draped in usual sterile fashion with alcohol and Hibiclens. A standard anterior approach the knee was made with incision centered over the medial one third of the patella. This was carried down through skin and subcutaneous tense tissue with a knife. The quadricep tendon was identified proximally and the patellar tendon distally. A medial parapatellar arthrotomy was made. A small joint effusion was evacuated. Upon entering the knee joint there was noted to be marked degenerative changes which were tricompartmental in nature. The remnant of the ACL was excised. The menisci were excised. Osteophytes were removed. Attention was first focused on the distal femur where an intramedullary guide was used to make a 5 valgus cut. A sizing jig was then applied and a 6 selected. With the cutting block in place the anterior, posterior and chamfer cuts were made. The notch cut was then made. Attention was then focused on the proximal tibia. An extramedullary guide was used. Approximately 4 mm of bone was resected from the more involved medial aspect. The varus/valgus alignment was also checked with an extramedullary guide. The tibia was then sized to a 6. A freehand technique was utilized on the patella. This was sized to a 35. Drill holes were made and trial components placed. The 10 mm tibial bearing gave the best range of motion and stability. There was lateral patellar tracking. A lateral release was completed with electrocautery device. These components were therefore selected. The femoral drill holes were made. The tibial cement punches were made. The wound was thoroughly irrigated with pulse lavage. Bone cement was prepared on the back table. After thorough drying it was applied to the proximal tibia. The tibial component was then impacted in the place. All excess bone cement was removed. Bone cement was then applied to the distal femur. The femoral component was then impacted in the place. All excess bone cement was removed. A trial insert was then placed. The knee was then placed in full extension for further compression. After thorough drying bone cement was applied to the undersurface of the patella. The patellar button was seated and held with a compression clamp. All excess bone cement was removed. Once the cement had matured the tibial bearing was placed and good range of motion, patellar tracking and stability was again noted. The wound was again thoroughly irrigated with pulse lavage. AutoVac drains were left in place. The incision was closed in layers utilizing #1 Vicryl suture on the extensor mechanism, 0 Vicryl suture on the deep tissue, 2-0 Vicryl suture on the subcutaneous tissue and flores on the skin. Sterile dressings were applied the patient was awakened transferred to the hospital bed and taken to the recovery room in stable condition.
[2018-03-05] MEDS ORDERED: fentaNYL Citrate Inj 100 MCG/2 ML Ampul ONE (13:53)
[2018-03-05] MEDS ORDERED: Morphine Inj 4 MG/ML Vial IV.PUSH PRN (14:01)
[2018-03-05] MEDS ORDERED: oxyCODONE/Acetaminophen 10/325 Tablet PO PRN (14:01)
[2018-03-05] MEDS ORDERED: Acetaminophen 325 MG Tablet PO PRN (14:01)
[2018-03-05] MEDS ORDERED: Bisacodyl 10 MG Supp RECTAL PRN (14:01)
[2018-03-05] MEDS ORDERED: Temazepam 15 MG Capsule PO PRN (14:01)
[2018-03-05] MEDS ORDERED: Post-op Orders (for Pharmacy) OTHER STA (14:01)
[2018-03-05] MEDS ORDERED: Tranexamic Acid Inj 1,000 MG in Sodium Chlor 0.9% Inj 100 ML IV.SIG ONE (15:00)
[2018-03-05] MEDS ORDERED: *morphine SULFATE 4 MG/ML PERIprocedure ONLY ONE (15:20)
--- NOTE | 2018-03-05 15:56 | XR ---
EXAM DATE: 03/05/2018 3:52 PM EDT AGE/SEX: 67 years / Female INDICATIONS: Post right knee arthroplasty CLINICAL DATA: This is the patient's initial encounter. Patient reports that signs and symptoms have been present for 1 day and indicates a pain score of 6/10. MEDICAL/SURGICAL HISTORY: Arthritis. None. COMPARISON: No prior exams available for comparison. FINDINGS: The patient is status post right total knee arthroplasty with prosthesis in good position. There is n o acute fracture or dislocation. CONCLUSION: Status post right total knee arthroplasty with prosthesis in good position. Electronically signed by: Jai Lambert MD 03/05/2018 3:55 PM EDT
[2018-03-05] MEDS: ceFAZolin 2 GM Premix Inj 2 GM/50 ML PIGGYBACK IV.SIG SCH (17:32)
--- NOTE | 2018-03-05 17:58 | P.CONIM ---
History of Present Illness Service: [facility] Consult date: 03/05/18 Requesting Physician: Julio Awan Reason for Consult: MEDICAL MANAGEMENT Primary Care Provider: No Primary Care Physician Family Provider: No Primary Care Physician Chief Complaint: SP RIGHT TOTAL KNEE History of Present Illness: Patient is a 67-year-old female. Who underwent a right total knee arthroplasty today for severe osteoarthritis. We have been asked to consult regarding medical management. Patient's past medical history is significant for anxiety, osteoarthritis, history of C difficile infection history of diverticulitis history of melanoma of the skin and history of peritonitis history of colon resection history of lumpectomy left breast and blepharoplasty of bilateral eyes Father has a history of brain cancer Review of Systems All other systems reviewed negative except as stated in HPI PMFSH - History History Provided By: Patient - Medical History Medical History: Medical History (Last Reviewed 03/05/18 @ 15:12 by Yelena Hanson PT) Anxiety Arthritis Dermatologic problem History of Clostridium difficile infection History of anesthesia reaction History of diverticulitis Hx of melanoma of skin Hx of peritonitis Pain in right knee Pain, joint, knee, left Wears eyeglasses - Surgical History Surgical History: Surgical History (Last Reviewed 03/05/18 @ 10:14 by Grace Mendoza) History of colon resection History of lumpectomy of left breast History of total left knee replacement Status post blepharoplasty of both eyes - Family History Family History: Family History (Last Updated 01/22/18 @ 15:38 by Deandra Flores) Father Brain cancer - Social History I have reviewed the patient's Social History: Yes - Tobacco History Second Hand Smoke Exposure: No Smoking Status: Never smoker - Alcohol History How Often Do You Have a Drink Containing Alcohol: 2 to 3 times a week - Substance Use History Substance History: No History of Abuse - Travel History History of Recent Travel: No Recent Travel in the [place] Within the Last 8 Weeks: No Recent Travel Out of the Country Within the Last 8 Weeks: No - Immunization History Tetanus Immunization: <5 Years Hx Influenza Vaccine This Season: No Medications and Allergies Active Medications: Active Medications Acetaminophen (Tylenol) 650 mg PO Q6H PRN PRN Reason: PAIN LESS THAN 5 ON SCALE Al Hydroxide/Mg Hydroxide (Milk Of Magnesia Liq) 30 ml PO BID PRN PRN Reason: Mild Constipation Aspirin (Aspirin Chew) 81 mg PO BID [facility] Bisacodyl (Dulcolax Supp) 10 mg RECTAL DAILY PRN PRN Reason: SEVERE CONSITIPATION Chlorhexidine Gluconate (Hibiclens 4% Topical) 1 applicatio TOPICAL ONCE [facility] Stop: 03/09/18 10:29 Last Admin: 03/05/18 10:58 Dose: 1 applicatio Diphenhydramine HCl (Benadryl) 25 mg PO Q6H PRN PRN Reason: ITCHING Lactated Ringer's (Lr 1000 Ml Inj) 1,000 mls @ 30 mls/hr IV.CONT .Q24H ONE Stop: 03/06/18 10:29 Last Infusion: 03/05/18 13:19 Dose: 30 mls/hr Sodium Chloride (Ns Inj) 500 mls @ 30 mls/hr IV.CONT .[id number] ONE Stop: 03/06/18 03:09 Last Admin: 03/05/18 10:57 Dose: Not Given Vancomycin HCl 1,000 mg/ (Sodium Chloride) 250 mls @ 250 mls/hr IV.SIG AUTOMATIC BLOCKER [facility] Stop: 03/05/18 23:00 Last Infusion: 03/05/18 12:19 Dose: Infused Cefazolin Sodium/Dextrose (Ancef 2 Gm Premix Inj) 2 gm in 50 mls @ 100 mls/hr IV.SIG Q6H [facility] Stop: 03/06/18 06:29 Last Admin: 03/05/18 17:32 Dose: 100 mls/hr Lactated Ringer's (Lr 1000 Ml Inj) 1,000 mls @ 80 mls/hr IV.CONT .[id number] [facility] Last Admin: 03/05/18 14:34 Dose: 80 mls/hr Lactobacillus Acidophilus (Lactinex) 1 tab PO BID [facility] Lactulose (Lactulose Liq) 30 ml PO DAILY PRN PRN Reason: SEVERE CONSITIPATION Miscellaneous Information (Misc Nursing Information) 1 each OTHER UNSCH PRN PRN Reason: SEE LABEL COMMENTS Stop: 03/06/18 13:44 Miscellaneous Information (Misc Post-Op Orders (For Pharmacy)) 0 each OTHER STAT STA Stop: 03/05/18 14:02 Morphine Sulfate (Morphine Inj) 2 mg IV.PUSH Q3H PRN PRN Reason: BREAKTHROUGH PAIN Non-Formulary Medication (Miconazole Nitrate [Zeasorb Af]) 1 applic TOPICAL DAILY [facility] Ondansetron HCl (Zofran Inj) 4 mg IV.PUSH Q6H PRN PRN Reason: NAUSEA OR VOMITING Oxycodone/Acetaminophen (Percocet 10/325 Mg) 1 tab PO Q4H PRN PRN Reason: Pain Less Than 5 On Scale Oxycodone/Acetaminophen (Percocet 5/325 Mg) 1 tab PO Q4H PRN PRN Reason: PAIN LESS THAN 5 ON SCALE Patient Own: ( Metronidazole 1% Gel [Metronidazole] 1 Applic) 0 each TOPICAL DAILY [facility] Senna/Docusate Sodium (Kirsten-Colace) 1 tab PO BID [facility] Sennosides (Senokot) 17.2 mg PO BID PRN PRN Reason: Moderate Constipation Sodium Chloride (Ns Flush) 2 ml IV.FLUSH BID [facility] Sodium Chloride (Ns Flush) 2 ml IV.FLUSH PRN PRN PRN Reason: FLUSH AFTER USING IV ACCESS Temazepam (Restoril) 15 mg PO HS PRN PRN Reason: INSOMNIA Allergies Allergy/AdvReac Type Severity Reaction Status Date / Time No Known Allergies Allergy Verified 03/05/18 10:14 Home Medications Medication Instructions Recorded Confirmed Type Saccharomyces boulardii [Florastor] 250 mg PO BID 01/04/18 03/05/18 History hydrochlorothiazide 25 mg PO DAILY PRN 01/04/18 03/05/18 History metronidazole 1 applic TOPICAL DAILY 01/04/18 03/05/18 History miconazole nitrate [Zeasorb AF] 1 applic TOPICAL DAILY 01/04/18 03/05/18 History nystatin-triamcinolone 1 applic TOPICAL DAILY PRN 01/04/18 03/05/18 History aspirin [Adult Low Dose Aspirin] 81 mg PO DAILY 03/02/18 03/05/18 History turmeric (bulk) [Curcumin] 1 tab MISCELLANEOUS BID 03/02/18 03/05/18 History Exam Vital signs: Vital Signs 03/05/18 10:32 03/05/18 11:04 03/05/18 13:43 Temperature 100.2 F H 97.8 F Pulse Rate 68 80 67 Respiratory Rate 18 20 Blood Pressure 129/58 L 174/82 H Pulse Oximetry 96 100 100 03/05/18 14:00 03/05/18 14:15 03/05/18 14:30 Temperature Pulse Rate 64 57 L 56 L Respiratory Rate 23 14 13 Blood Pressure 165/78 H 162/78 H 161/77 H Pulse Oximetry 99 98 99 03/05/18 15:00 03/05/18 16:00 03/05/18 16:16 Temperature 97.8 F Pulse Rate 59 L 71 Respiratory Rate 12 21 20 Blood Pressure 148/72 H 152/77 H Pulse Oximetry 100 99 Intake & Output 03/04/18 03/05/18 03/05/18 18:59 06:59 18:59 Intake Total 1320 / 1320 Output Total 400 / 400 Balance 920 / 920 Weight 95.254 kg Intake: IV 1320 / 1320 LR 1000 mL Inj 1,000 ML @ 30 800 / 800 mls/hr IV.CONT .Q24H ONE Rx#: [id number] Cyklokapron Inj 1,000 MG In NS 220 / 220 Inj 100 ML @ 200 mls/hr IV.SIG ONCE ONE Rx#:[id number] Vancomycin Inj 1,000 MG In NS 250 / 250 Inj 250 ML @ 250 mls/hr IV.SIG AUTOMATIC BLOCKER [facility] Rx#:[id number] Ancef 2 GM Premix Inj 2 gm In 50 / 50 50 ml @ 100 mls/hr IV.SIG AUTOMATIC BLOCKER [facility] Rx#:[id number] Output: Estimated Blood Loss 50 / 50 Urine Amount (Catheter) 300 / 300 Straight 300 / 300 Wound Drainage 50 / 50 Right Knee Hemovac 50 / 50 Other: Weight On Admission 95.7 kg Narrative: GENERAL: Awake alert and oriented 3 talkative and cooperative appears stated age SKIN: Warm and dry. No obvious rashes HEAD: Atraumatic. Normocephalic. EYES: Pupils equal and round. No scleral icterus. No injection or drainage. EOMI ENT: No nasal bleeding or discharge. Mucous membranes pink and moist. Tongue is midline NECK: Trachea midline. No JVD. Supple CARDIOVASCULAR: Regular rate and rhythm. S1-S2 no S3 or S4 RESPIRATORY: No accessory muscle use. Clear to auscultation. Breath sounds equal bilaterally. GASTROINTESTINAL: Abdomen soft, non-tender, nondistended. Hepatic and splenic margins not palpable. MUSCULOSKELETAL: Extremities without clubbing, cyanosis, or edema. No obvious deformities. NEUROLOGICAL: Awake and alert. No obvious cranial nerve deficits. Motor grossly within normal limits. Five out of 5 muscle strength in the arms and legs. Normal speech. Right knee is wrapped and dressed PSYCHIATRIC: Appropriate mood and affect; insight and judgment normal. Results - Labs Labs: Laboratory Results - last 24 hr 03/05/18 10:21 Blood Type O Positive Antibody Screen Negative - Imaging Impressions Knee X-Ray 03/05/18 00:00 CONCLUSION: Status post right total knee arthroplasty with prosthesis in good position. Assessment and Plan - Plan Status post right total knee arthroplasty due to severe osteoarthritis Has already undergone surgery. 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 labs Physical therapy and Occupational Therapy consult Discussed with RN and patient and charge nurse Code Status: Full code Discussed Condition With: RN and patient Discharge Planning: Once cleared by orthopedic surgery
[2018-03-05] MEDS: Senna/Docusate Sodium 8.6/50 MG Tablet PO SCH (21:12)
[2018-03-05] MEDS: Lactobacillus Acidophilus/L. Spores Tablet PO SCH (21:12)
[2018-03-06] MEDS: ceFAZolin 2 GM Premix Inj 2 GM/50 ML PIGGYBACK IV.SIG SCH (01:04)
[2018-03-06] MEDS: ceFAZolin Inj 2,000 MG in Sodium Chlor 0.9% Inj 80 ML IV.SIG SCH ×2 (01:06→06:29)
[2018-03-06] MEDS ORDERED: ceFAZolin Inj 2,000 MG in Sodium Chlor 0.9% Inj 80 ML IV.SIG SCH (02:00)
--- NOTE | 2018-03-06 06:52 | P.PNOP ---
Subjective Interval history: POD 1 right TKA Patient is awake and alert and lying in bed. She states that her pain is well controlled and she did work with PT yesterday. Patient expresses interest in going to rehab facility Physical Exam Vital signs: Vital Signs 03/05/18 10:32 03/05/18 11:04 03/05/18 13:43 Temperature 100.2 F H 97.8 F Pulse Rate 68 80 67 Respiratory Rate 18 20 Blood Pressure 129/58 L 174/82 H Pulse Oximetry 96 100 100 03/05/18 14:00 03/05/18 14:15 03/05/18 14:30 Temperature Pulse Rate 64 57 L 56 L Respiratory Rate 23 14 13 Blood Pressure 165/78 H 162/78 H 161/77 H Pulse Oximetry 99 98 99 03/05/18 15:00 03/05/18 16:00 03/05/18 16:16 Temperature 97.8 F Pulse Rate 59 L 71 Respiratory Rate 12 21 20 Blood Pressure 148/72 H 152/77 H Pulse Oximetry 100 99 03/05/18 20:00 03/06/18 00:00 03/06/18 04:00 Temperature 97.9 F 97.8 F 98.2 F Pulse Rate 83 65 61 Respiratory Rate 18 17 17 Blood Pressure 127/64 128/63 119/60 Pulse Oximetry 96 95 96 Intake & Output 03/05/18 03/05/18 03/06/18 06:59 18:59 06:59 Intake Total 1370 / 1370 1300 / 1300 Output Total 400 / 400 40 / 40 Balance 970 / 970 1260 / 1260 Weight 95.254 kg 95.2 kg Intake: IV 1370 / 1370 1300 / 1300 LR 1000 mL Inj 1,000 ML @ 80 800 / 800 1200 / 1200 mls/hr IV.CONT .[id number] [facility] Rx# :[id number] Cyklokapron Inj 1,000 MG In NS 220 / 220 Inj 100 ML @ 200 mls/hr IV.SIG ONCE ONE Rx#:[id number] Vancomycin Inj 1,000 MG In NS 250 / 250 Inj 250 ML @ 250 mls/hr IV.SIG TELLER [facility] Rx#:[id number] Ancef 2 GM Premix Inj 2 gm In 100 / 100 50 ml @ 100 mls/hr IV.SIG Q6H [facility] Rx#:[id number] Ancef Inj 2,000 MG In NS Inj 80 100 / 100 ML @ 100 mls/hr IV.SIG Q6H [facility] Rx#:[id number] Output: Estimated Blood Loss 50 / 50 Urine Amount (Catheter) 300 / 300 Straight 300 / 300 Wound Drainage 50 / 50 40 / 40 Right Knee Hemovac 50 / 50 40 / 40 Other: Date of Last Bowel Movement 03/03/18 Weight On Admission 95.7 kg Narrative: RLE: Dressing dry and intact. Drain in place. Tender to palpation with mild swelling around incision site. Appropriate range of motion expected post operatively. Freely able to move distal digits. No calf pain. Negative Lea's sign. Good cap refill. 2+ pedal pulses. Neurovascular intact. - Urinary Catheter Management Straight Cath placed during this visit: no Results - Labs Laboratory Results - last 24 hr 03/05/18 10:21 Blood Type O Positive Antibody Screen Negative - Imaging Impressions Knee X-Ray 03/05/18 00:00 CONCLUSION: Status post right total knee arthroplasty with prosthesis in good position. - Procedures Right Total Knee Arthroplasty 03/05/18 Dr Awan Assessment and Plan - Ortho Post Op Day # 1 - Assessment and Plan POD #1 Right TKA Ortho status stable [facility] rehab, WBAT CKS for comfort while in bed ASA for DVT prophylaxis No change dressing, D/C drain and Jovani wraps POD #2 Discharge planning - most likely to rehab facility on POD #3
[2018-03-06 07:08] LABS: Baso % (Auto) 0.2 % (0.0-2.0); Hematocrit 33.5 % (35.0-46.0); Hemoglobin 11.1 gm/dL (11.6-15.3); Mean Corpuscular HGB Conc 33.1 % (32.0-36.0); Mean Corpuscular Hemoglobin 32.3 pg (27.0-34.0); Mean Corpuscular Volume 97.5 fL (80.0-100.0); Mean Platelet Volume 7.7 fL (7.0-11.0); Mono % (Auto) 11.8 % (0.0-8.0); Neut # (Auto) 6.3 th/mm3 (1.8-7.7); Platelet Count 231 th/mm3 (150-450); Red Blood Count 3.43 mil/mm3 (4.00-5.30); Red Cell Distribution Width 13.7 % (11.6-17.2); White Blood Count 8.2 th/mm3 (4.0-11.0)
[2018-03-06 07:35] LABS: Chloride 105 meq/L (98-107); Glucose,Random 112 mg/dL (74-106); Potassium 3.8 meq/L (3.5-5.1); Sodium 142 meq/L (136-145)
[2018-03-06 07:45] LABS: Alanine Aminotransferase 16 U/L (10-53); Alkaline Phosphatase 66 U/L (45-117); Anion Gap 8 meq/L (5-15); Aspartate Aminotransferase 9 U/L (15-37); Blood Urea Nitrogen 11 mg/dL (7-18); Carbon Dioxide 28.6 meq/L (21.0-32.0); Free T4 (Free Thyroxine) 0.87 ng/dL (0.76-1.46); Glomerular Filtration Rate Greater Than 89 mL/min (>89); Magnesium 2.1 mg/dL (1.5-2.5); Phosphorus 3.2 mg/dL (2.5-4.9); Thyroid Stimulating Hormone 0.264 uIU/mL (0.358-3.740); Total Protein 5.7 g/dL (6.4-8.2)
[2018-03-06] MEDS ORDERED: METRONIDAZOLE 1% TOPICAL SCH (09:00)
[2018-03-06] MEDS: Senna/Docusate Sodium 8.6/50 MG Tablet PO SCH ×2 (09:38→20:57)
[2018-03-06] MEDS: Lactobacillus Acidophilus/L. Spores Tablet PO SCH ×2 (09:38→20:57)
[2018-03-06 10:22] LABS: Hemoglobin A1c 4.8 % (4.3-6.0)
[2018-03-06] MEDS: MICONAZOLE NITRATE 2% TOPICAL SCH (12:16)
--- NOTE | 2018-03-06 16:31 | P.PNIM ---
Subjective Interval history: Patient is a 67-year-old female. Who underwent a right total knee arthroplasty today for severe osteoarthritis. We have been asked to consult regarding medical management. Patient's past medical history is significant for anxiety, osteoarthritis, history of C difficile infection history of diverticulitis history of melanoma of the skin and history of peritonitis history of colon resection history of lumpectomy left breast and blepharoplasty of bilateral eyes Father has a history of brain cancer 9-18 NO NEW ISSUES WORKING WITH PT LABS ARE STABLE HAS SOME PAIN DW RN AND PT AND FAMILY Physical Exam Vital signs: Vital Signs 03/05/18 20:00 03/06/18 00:00 03/06/18 04:00 Temperature 97.9 F 97.8 F 98.2 F Pulse Rate 83 65 61 Respiratory Rate 18 17 17 Blood Pressure 127/64 128/63 119/60 Pulse Oximetry 96 95 96 03/06/18 08:00 03/06/18 12:00 Temperature 97.9 F 98.8 F Pulse Rate 66 99 H Respiratory Rate 18 18 Blood Pressure 126/55 L 123/64 Pulse Oximetry 96 95 Intake & Output 03/05/18 03/06/18 03/06/18 18:59 06:59 18:59 Intake Total 1370 / 1370 1300 / 1300 100 / 100 Output Total 400 / 400 40 / 40 Balance 970 / 970 1260 / 1260 100 / 100 Weight 95.254 kg 95.2 kg Intake: IV 1370 / 1370 1300 / 1300 100 / 100 LR 1000 mL Inj 1,000 ML @ 80 800 / 800 1200 / 1200 mls/hr IV.CONT .[id number] [facility] Rx# :[id number] Cyklokapron Inj 1,000 MG In NS 220 / 220 Inj 100 ML @ 200 mls/hr IV.SIG ONCE ONE Rx#:[id number] Vancomycin Inj 1,000 MG In NS 250 / 250 Inj 250 ML @ 250 mls/hr IV.SIG [employer]PER[employer] [facility] Rx#:[id number] Ancef 2 GM Premix Inj 2 gm In 100 / 100 50 ml @ 100 mls/hr IV.SIG Q6H [facility] Rx#:[id number] Ancef Inj 2,000 MG In NS Inj 80 100 / 100 100 / 100 ML @ 100 mls/hr IV.SIG Q6H [facility] Rx#:[id number] Output: Estimated Blood Loss 50 / 50 Urine Amount (Catheter) 300 / 300 Straight 300 / 300 Wound Drainage 50 / 50 40 / 40 Right Knee Hemovac 50 / 50 40 / 40 Other: Date of Last Bowel Movement 03/03/18 03/03/18 Weight On Admission 95.7 kg Narrative: GENERAL: Awake alert and oriented 3 talkative and cooperative appears stated age SKIN: Warm and dry. No obvious rashes HEAD: Atraumatic. Normocephalic. EYES: Pupils equal and round. No scleral icterus. No injection or drainage. EOMI ENT: No nasal bleeding or discharge. Mucous membranes pink and moist. Tongue is midline NECK: Trachea midline. No JVD. Supple CARDIOVASCULAR: Regular rate and rhythm. S1-S2 no S3 or S4 RESPIRATORY: No accessory muscle use. Clear to auscultation. Breath sounds equal bilaterally. GASTROINTESTINAL: Abdomen soft, non-tender, nondistended. Hepatic and splenic margins not palpable. MUSCULOSKELETAL: Extremities without clubbing, cyanosis, or edema. No obvious deformities. NEUROLOGICAL: Awake and alert. No obvious cranial nerve deficits. Motor grossly within normal limits. Five out of 5 muscle strength in the arms and legs. Normal speech. Right knee is dressed PSYCHIATRIC: Appropriate mood and affect; insight and judgment normal. - Urinary Catheter Management Straight Cath placed during this visit: no Results - Labs CBC & Chem 7: 03/06/18 05:48 03/06/18 05:48 Laboratory Results - last 24 hr 03/06/18 03/06/18 03/06/18 05:48 05:48 05:48 WBC 8.2 RBC 3.43 L Hgb 11.1 L Hct 33.5 L MCV 97.5 MCH 32.3 MCHC 33.1 RDW 13.7 Plt Count 231 MPV 7.7 Neut % (Auto) 76.0 H Lymph % (Auto) 12.0 [place] % (Auto) 11.8 H Eos % (Auto) 0.0 Baso % (Auto) 0.2 Neut # (Auto) 6.3 Lymph # (Auto) 1.0 [place] # (Auto) 1.0 H Eos # (Auto) 0.0 Baso # (Auto) 0.0 WBC Differential . Differential Comment Auto diff final Sodium 142 Potassium 3.8 Chloride 105 Carbon Dioxide 28.6 Anion Gap 8 BUN 11 Creatinine 0.57 Estimated GFR Greater than 89 Random Glucose 112 H Hemoglobin A1c 4.8 Calcium 8.0 L Phosphorus 3.2 Magnesium 2.1 Total Bilirubin 0.7 AST 9 L ALT 16 Alkaline Phosphatase 66 Total Protein 5.7 L Albumin 3.0 L TSH 0.264 L Free T4 0.87 - Procedures Right Total Knee Arthroplasty 03/05/18 Dr Awan Assessment and Plan - Plan Status post right total knee arthroplasty due to severe osteoarthritis Has already undergone surgery. 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 labs Physical therapy and Occupational Therapy consult Discussed with RN and patient and charge nurse Code Status: FULL CODE Discussed Condition With: RN AND PT Discharge Planning: Once cleared by orthopedic surgery
[2018-03-07 06:46] LABS: Hematocrit 31.3 % (35.0-46.0); Hemoglobin 10.6 gm/dL (11.6-15.3)
--- NOTE | 2018-03-07 07:08 | P.PNOP ---
Subjective Interval history: Postoperative day #2 right total knee arthroplasty. The patient is awake and alert and answers questions appropriately. She states she slept well. Her pain is controlled. She has no other specific complaint. Physical Exam Vital signs: Vital Signs 03/06/18 08:00 03/06/18 12:00 03/06/18 16:00 Temperature 97.9 F 98.8 F 98.4 F Pulse Rate 66 99 H 71 Respiratory Rate 18 18 18 Blood Pressure 126/55 L 123/64 118/59 L Pulse Oximetry 96 95 95 03/06/18 20:00 03/07/18 00:00 Temperature 99.5 F 98.2 F Pulse Rate 93 H 89 Respiratory Rate 18 17 Blood Pressure 141/62 H 136/65 Pulse Oximetry 95 97 Intake & Output 03/06/18 03/07/18 03/07/18 18:59 06:59 18:59 Intake Total 100 / 100 Balance 100 / 100 Weight 95.2 kg Intake: IV 100 / 100 Ancef Inj 2,000 MG In NS Inj 80 100 / 100 ML @ 100 mls/hr IV.SIG Q6H [facility] Rx#:[id number] Other: # Voids 2 Date of Last Bowel Movement 03/03/18 03/03/18 Narrative: The Hemovac drain came out yesterday. There is minimal dry bloody drainage on the incision dressing. There is mild ecchymosis medially. There is moderate swelling. There is no significant increased warmth. There is no erythema. She has no calf discomfort and a negative Homans sign. Neurologically no focal deficit peer - Urinary Catheter Management Straight Cath placed during this visit: no Results - Labs CBC & Chem 7: 03/07/18 05:44 03/06/18 05:48 Laboratory Results - last 24 hr 03/06/18 03/06/18 03/06/18 05:48 05:48 05:48 WBC 8.2 RBC 3.43 L Hgb 11.1 L Hct 33.5 L MCV 97.5 MCH 32.3 MCHC 33.1 RDW 13.7 Plt Count 231 MPV 7.7 Neut % (Auto) 76.0 H Lymph % (Auto) 12.0 [place] % (Auto) 11.8 H Eos % (Auto) 0.0 Baso % (Auto) 0.2 Neut # (Auto) 6.3 Lymph # (Auto) 1.0 [place] # (Auto) 1.0 H Eos # (Auto) 0.0 Baso # (Auto) 0.0 WBC Differential . Differential Comment Auto diff final Sodium 142 Potassium 3.8 Chloride 105 Carbon Dioxide 28.6 Anion Gap 8 BUN 11 Creatinine 0.57 Estimated GFR Greater than 89 Random Glucose 112 H Hemoglobin A1c 4.8 Calcium 8.0 L Phosphorus 3.2 Magnesium 2.1 Total Bilirubin 0.7 AST 9 L ALT 16 Alkaline Phosphatase 66 Total Protein 5.7 L Albumin 3.0 L TSH 0.264 L Free T4 0.87 03/07/18 05:44 WBC RBC Hgb 10.6 L Hct 31.3 L MCV MCH MCHC RDW Plt Count MPV Neut % (Auto) Lymph % (Auto) [place] % (Auto) Eos % (Auto) Baso % (Auto) Neut # (Auto) Lymph # (Auto) [place] # (Auto) Eos # (Auto) Baso # (Auto) WBC Differential Differential Comment Sodium Potassium Chloride Carbon Dioxide Anion Gap BUN Creatinine Estimated GFR Random Glucose Hemoglobin A1c Calcium Phosphorus Magnesium Total Bilirubin AST ALT Alkaline Phosphatase Total Protein Albumin TSH Free T4 - Imaging Knee X-Ray 03/05/18 00:00 CONCLUSION: Status post right total knee arthroplasty with prosthesis in good position. - Procedures Right Total Knee Arthroplasty 03/05/18 Dr Awan Assessment and Plan - Ortho Post Op Day # 2 - Problem List (1) Osteoarthritis of right knee Code(s): M17.11 - Unilateral primary osteoarthritis, right knee Status: Acute - Assessment and Plan POD #2 Right TKA Ortho status stable [facility], WBAT CKS for comfort while in bed ASA for DVT prophylaxis No change dressing Anticipate discharge to rehab 03/08/2018
[2018-03-07] MEDS: Lactobacillus Acidophilus/L. Spores Tablet PO SCH (08:45)
[2018-03-07] MEDS: MICONAZOLE NITRATE 2% TOPICAL SCH (08:45)
[2018-03-07] MEDS: Senna/Docusate Sodium 8.6/50 MG Tablet PO SCH (08:46)
--- NOTE | 2018-03-07 17:09 | P.PNIM ---
Subjective Interval history: Patient is a 67-year-old female. Who underwent a right total knee arthroplasty today for severe osteoarthritis. We have been asked to consult regarding medical management. Patient's past medical history is significant for anxiety, osteoarthritis, history of C difficile infection history of diverticulitis history of melanoma of the skin and history of peritonitis history of colon resection history of lumpectomy left breast and blepharoplasty of bilateral eyes Father has a history of brain cancer 03-06 NO NEW ISSUES WORKING WITH PT LABS ARE STABLE HAS SOME PAIN DW RN AND PT AND FAMILY 03-07 COMPLAINS OF PAIN IN RIGHT KNEE HAS BRUISING IN RIGHT KNEE DW PT AND RN Physical Exam Vital signs: Vital Signs 03/06/18 20:00 03/07/18 00:00 03/07/18 08:00 Temperature 99.5 F 98.2 F 98.3 F Pulse Rate 93 H 89 89 Respiratory Rate 18 17 18 Blood Pressure 141/62 H 136/65 125/72 Pulse Oximetry 95 97 94 L 03/07/18 12:00 03/07/18 16:00 Temperature 98.2 F 98 F Pulse Rate 93 H 84 Respiratory Rate 18 18 Blood Pressure 113/62 134/65 Pulse Oximetry 92 L 98 Intake & Output 03/06/18 03/07/18 03/07/18 18:59 06:59 18:59 Intake Total 100 / 100 Balance 100 / 100 Weight 95.2 kg Intake: IV 100 / 100 Ancef Inj 2,000 MG In NS Inj 80 100 / 100 ML @ 100 mls/hr IV.SIG Q6H [facility] Rx#:[id number] Other: # Voids 2 Date of Last Bowel Movement 03/03/18 03/03/18 03/03/18 Narrative: GENERAL: Awake alert and oriented 3 talkative and cooperative appears stated age SKIN: Warm and dry. No obvious rashes HEAD: Atraumatic. Normocephalic. EYES: Pupils equal and round. No scleral icterus. No injection or drainage. EOMI ENT: No nasal bleeding or discharge. Mucous membranes pink and moist. Tongue is midline NECK: Trachea midline. No JVD. Supple CARDIOVASCULAR: Regular rate and rhythm. S1-S2 no S3 or S4 RESPIRATORY: No accessory muscle use. Clear to auscultation. Breath sounds equal bilaterally. GASTROINTESTINAL: Abdomen soft, non-tender, nondistended. Hepatic and splenic margins not palpable. MUSCULOSKELETAL: Extremities without clubbing, cyanosis, or edema. No obvious deformities. NEUROLOGICAL: Awake and alert. No obvious cranial nerve deficits. Motor grossly within normal limits. Five out of 5 muscle strength in the arms and legs. Normal speech. Right knee is dressed PSYCHIATRIC: Appropriate mood and affect; insight and judgment normal. - Urinary Catheter Management Straight Cath placed during this visit: no Results - Labs CBC & Chem 7: 03/07/18 05:44 03/06/18 05:48 Laboratory Results - last 24 hr 03/07/18 05:44 Hgb 10.6 L Hct 31.3 L - Imaging Knee X-Ray 03/05/18 00:00 CONCLUSION: Status post right total knee arthroplasty with prosthesis in good position. - Procedures Right Total Knee Arthroplasty 03/05/18 Dr Awan Assessment and Plan - Plan Status post right total knee arthroplasty due to severe osteoarthritis Has already undergone surgery. 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 labs Physical therapy and Occupational Therapy consult Discussed with RN and patient and charge nurse Code Status: FULL CODE Discussed Condition With: RN AND PT Discharge Planning: Once cleared by orthopedic surgery
[2018-03-07] MEDS ORDERED: Temazepam 15 MG Capsule PO PRN (21:00)
[2018-03-07] MEDS ORDERED: Bisacodyl 10 MG Supp RECTAL PRN (21:15)
[2018-03-07] MEDS ORDERED: Morphine Inj 4 MG/ML Vial IV.PUSH PRN (21:17)
[2018-03-07] MEDS ORDERED: Acetaminophen 325 MG Tablet PO PRN (21:21)
[2018-03-07] MEDS: oxyCODONE/Acetaminophen 10/325 Tablet PO PRN (21:41)
[2018-03-08] MEDS: oxyCODONE/Acetaminophen 10/325 Tablet PO PRN ×2 (05:31→20:07)
--- NOTE | 2018-03-08 06:54 | P.PNOP ---
Subjective Interval history: POD #3 Right TKA Pt is awake and alert. She states she continues to have problems controlling pain and does not feel ready for discharge today. She would feel safer is discharge is tomorrow and had an extra day with pain control and PT. Physical Exam Vital signs: Vital Signs 03/07/18 08:00 03/07/18 12:00 03/07/18 16:00 Temperature 98.3 F 98.2 F 98 F Pulse Rate 89 93 H 84 Respiratory Rate 18 18 18 Blood Pressure 125/72 113/62 134/65 Pulse Oximetry 94 L 92 L 98 18 20:00 03/08/18 00:00 Temperature 97.9 F 97.7 F Pulse Rate 84 80 Respiratory Rate 16 16 Blood Pressure 128/71 121/97 H Pulse Oximetry 97 97 Intake & Output 03/07/1803/07/18 03/08/18 06:59 18:59 06:59 Intake Total 840 / 840 450 / 450 Balance 840 / 840 450 / 450 Weight 95.2 kg 95.6 kg Intake: Oral 840 / 840 450 / 450 Other: # Voids 2 3 2 Date of Last Bowel Movement 03/03/18 03/03/18 03/03/18 # Bowel Movements 0 1 Narrative: Dressing has mild amount of saturation. Brace in place. Tender to palpation with mild swelling around incision site. Appropriate range of motion expected post operatively. Freely able to move distal digits. No calf pain. Negative Lea's sign. Good cap refill. 2+ pedal pulses. Neurovascular intact. - Urinary Catheter Management Straight Cath placed during this visit: no Results - Labs CBC & Chem 7: 03/07/18 05:44 03/06/18 05:48 - Procedures Right Total Knee Arthroplasty 03/05/18 Dr Awan Assessment and Plan - Problem List (1) Osteoarthritis of right knee Code(s): M17.11 - Unilateral primary osteoarthritis, right knee Status: Acute - Assessment and Plan POD #3 Right TKA Ortho status stable Progress rehab, WBAT CKS for comfort while in bed ASA for DVT prophylaxis No change dressing Discharge planning, most likely discharge to rehab tomorrow due to pain limitations.
[2018-03-08] MEDS: Miconazole 2% Cream 15 GM Tube TOPICAL SCH (08:46)
[2018-03-08] MEDS: Senna/Docusate Sodium 8.6/50 MG Tablet PO SCH ×2 (08:47→20:06)
[2018-03-08] MEDS: Lactobacillus Acidophilus/L. Spores Tablet PO SCH ×2 (08:48→16:02)
[2018-03-08] MEDS ORDERED: MICONAZOLE TOPICAL SCH (09:00)
[2018-03-08] MEDS ORDERED: hydroCHLOROthiazide 25 MG Tablet PO PRN (10:16)
--- NOTE | 2018-03-08 14:02 | P.PNIM ---
Subjective Interval history: FU POD #3 TKA. Patient is doing well, ready to go to rehab. Denies any pain. Physical Exam Vital signs: Vital Signs 03/07/18 16:00 03/07/18 20:00 03/08/18 00:00 Temperature 98 F 97.9 F 97.7 F Pulse Rate 84 84 80 Respiratory Rate 18 16 16 Blood Pressure 134/65 128/71 121/97 H Pulse Oximetry 98 97 97 03/08/18 07:43 03/08/18 11:53 Temperature 98.1 F 97.7 F Pulse Rate 95 H 83 Respiratory Rate 16 17 Blood Pressure 157/68 H 120/69 Pulse Oximetry 94 L 96 Intake & Output 03/07/18 03/08/18 03/08/18 18:59 06:59 18:59 Intake Total 840 / 840 450 / 450 Balance 840 / 840 450 / 450 Weight 95.6 kg Intake: Oral 840 / 840 450 / 450 Other: # Voids 3 2 Date of Last Bowel Movement 03/03/18 03/03/18 03/08/18 # Bowel Movements 0 1 Narrative: GENERAL: This is a well-nourished, well-developed patient, in no apparent distress. CARDIOVASCULAR: Regular rate and rhythm without murmurs, gallops, or rubs. RESPIRATORY: Clear to auscultation. Breath sounds equal bilaterally. No wheezes , rales, or rhonchi. GASTROINTESTINAL: Abdomen soft, non-tender, nondistended. Normal active bowel sounds MUSCULOSKELETAL: Extremities without clubbing, cyanosis, or edema. NEURO: Alert & Oriented x4 to person, place, time, situation. Moves all ext x4 - Urinary Catheter Management Straight Cath placed during this visit: no Results - Labs CBC & Chem 7: 03/07/18 05:44 03/06/18 05:48 - Procedures Right Total Knee Arthroplasty 03/05/18 Dr Awan Assessment and Plan - Plan Status post right total knee arthroplasty due to severe osteoarthritis Has already undergone surgery. 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 labs Physical therapy and Occupational Therapy following Patient has remained stable will sign off. Discussed Condition With: Patient
[2018-03-08 21:36] VITALS: RESP 18
--- NOTE | 2018-03-09 07:35 | P.PNOP ---
Subjective Interval history: POD #4 Right TKA Patient awake alert and states her pain is better controlled. She feels ready for discharge to rehab today. Physical Exam Vital signs: Vital Signs 03/08/18 07:43 03/08/18 11:53 03/08/18 15:44 Temperature 98.1 F 97.7 F 97.1 F L Pulse Rate 95 H 83 81 Respiratory Rate 16 17 17 Blood Pressure 157/68 H 120/69 138/75 Pulse Oximetry 94 L 96 98 03/08/18 20:00 03/09/18 00:00 Temperature 98.5 F 97.9 F Pulse Rate 84 77 Respiratory Rate 18 18 Blood Pressure 146/66 H 126/62 Pulse Oximetry 99 97 Intake & Output 03/08/1818 03/09/18 18:59 06:59 18:59 Intake Total 1600 / 1600 Balance 1600 / 1600 Intake: Oral 1600 / 1600 Other: # Voids 4 4 Date of Last Bowel Movement 18 03/08/18 # Bowel Movements 0 Narrative: Dressing has moderate amount of saturation, proximal edge not well adhered. Brace in place. Tender to palpation with mild swelling around incision site. Appropriate range of motion expected post operatively. Freely able to move distal digits. No calf pain. Negative Lea's sign. Good cap refill. 2+ pedal pulses. Neurovascular intact. - Urinary Catheter Management Straight Cath placed during this visit: no Results - Labs CBC & Chem 7: 03/07/18 05:44 03/06/18 05:48 - Procedures Right Total Knee Arthroplasty 03/05/18 Dr Awan Assessment and Plan - Ortho Post Op Day # 4 - Problem List (1) Osteoarthritis of right knee Code(s): M17.11 - Unilateral primary osteoarthritis, right knee Status: Acute - Assessment and Plan POD #4 Right TKA Ortho status stable Progress rehab, WBAT CKS for comfort while in bed ASA for DVT prophylaxis Change dressing with large primapore before discharge Clear for d/c from an orthopedic standpoint
--- NOTE | 2018-03-09 07:40 | P.DS ---
Date of admission: 03/07/18 09:36 Primary care physician: No Primary Care Physician Brief History from admission: This 67-year-old female has a long history of bilateral knee osteoarthritis. She is now approximately 6 weeks postoperative left total knee arthroplasty with a good result to date. She is very limited secondary to right knee pain. X-rays are consistent with advanced osteoarthritis which is tricompartmental with [id number] apposition, osteophyte formation and mild deformity. She is now unresponsive to nonoperative measures and given the alternatives of treatment presents for right total knee arthroplasty. DS: Diagnosis - Discharge Diagnosis (1) Osteoarthritis of right knee Status: Acute (2) History of total right knee replacement Status: Acute DS: Medications - Discharge Medications Prescriptions: aspirin 81 mg PO BID 20 Days #40 tab oxycodone-acetaminophen 1 tab PO Q4H PRN #40 tab PRN Reason: PAIN 1-5 DS: Summary Hospital Course: On the day of admission the patient was taken to the operating room where the patient underwent right total knee arthroplasty. The patient tolerated the procedure well. For details of operative report please see dictated operative report. The patient was placed on Ancef for infection prophylaxis and Aspirin for DVT prophylaxis. Physical therapy was consulted for discharge planning. The patient will be placed in a rehab unit and it has been arranged. She required an extra night in the hospital due to pain control. At the time of discharge the patient was afebrile. Incision line noted to be healing well. The patient will be discharged home with Aspirin for DVT prophylaxis and prescribed Percocet for pain. Acute pain exception, PDMP E-Forsce checked. The patient acknowledges full understanding of plan of treatment and agrees to it. - Time Spent with Patient Total time spent providing and/or coordinating discharge services: Greater than 30 minutes - Quality: VTE Deep Vein Thrombosis/Pulmonary Embolism Present on Admission: No Exam Vital signs: Vital Signs 03/08/18 07:43 03/08/18 11:53 03/08/18 15:44 Temperature 98.1 F 97.7 F 97.1 F L Pulse Rate 95 H 83 81 Respiratory Rate 16 17 17 Blood Pressure 157/68 H 120/69 138/75 Pulse Oximetry 94 L 96 98 03/08/18 20:00 03/09/18 00:00 Temperature 98.5 F 97.9 F Pulse Rate 84 77 Respiratory Rate 18 18 Blood Pressure 146/66 H 126/62 Pulse Oximetry 99 97 Intake & Output 03/08/18 03/09/18 03/09/18 18:59 06:59 18:59 Intake Total 1600 / 1600 Balance 1600 / 1600 Intake: Oral 1600 / 1600 Other: # Voids 4 4 Date of Last Bowel Movement 03/08/18 03/08/18 # Bowel Movements 0 Narrative: Dressing dry and intact. Brace in place. Tender to palpation with mild swelling around incision site. Appropriate range of motion expected post operatively. Freely able to move distal digits. No calf pain. Negative Lea's sign. Good cap refill. 2+ pedal pulses. Neurovascular intact. Results Procedures completed during hospitalization: Right Total Knee Arthroplasty 03/05/18 Dr Awan - Impressions ITS Impressions Knee X-Ray 03/05/18 00:00 CONCLUSION: Status post right total knee arthroplasty with prosthesis in good position. Discharge Plan - Discharge Disposition Patient Disposition: 62 Rehab Inpatient - Discharge Condition Condition: Good - Discharge Order Discharge Orders: Discharge Order (Routine); Ordered 03/09/18 Ordered By: Liz Smith (Ashley)[facility] Hospitalist Clear for Discharge (Routine); Ordered 03/08/18 Ordered By: Maday Schneider - Physicians Team Primary Care Provider: Primary Care Richard,Karol Attending Provider: Julio Awan Other Providers: Clyde Villar - Rxs /Orders / Referrals /Forms Prescriptions: New acetaminophen 325 mg Tablet 650 mg PO Q6H PRN (Reason: PAIN 1-4) RF: 0 aspirin 81 mg Tablet,Chewable 81 mg PO BID 20 Days Qty: 40 RF: 0 oxycodone-acetaminophen 5-325 mg Tablet 1 tab PO Q4H PRN (Reason: PAIN 1-5) Qty: 40 RF: 0 Continue hydrochlorothiazide 25 mg Tablet 25 mg PO DAILY PRN (Reason: RETENTION) metronidazole 1 % Gel 1 applic TOPICAL DAILY miconazole nitrate [Zeasorb AF] 2 % Powder 1 applic TOPICAL DAILY nystatin-triamcinolone 100,000-0.1 unit/g-% Cream 1 applic TOPICAL DAILY PRN (Reason: Rash) Saccharomyces boulardii [Florastor] 250 mg Capsule 250 mg PO BID turmeric (bulk) [Curcumin] 95 % Powder 1 tab miscellaneous BID Discontinued aspirin [Adult Low Dose Aspirin] 81 mg Tablet,Delayed Release (Dr/Ec) 81 mg PO DAILY Ambulatory Orders / Order Sets / DME: Commode 3-in-11 (1 each) (Routine) Location: Determined by Patient Ordered By: Liz Toscano (Ashley) Walker Folding (Routine) Location: Determined by Patient Ordered By: Liz Toscano (Ashley) Referrals: Primary Care Karol Ramos [Primary Care Provider] - See Instructions Julio Awan MD [Physician] - See Instructions - Discharge Instructions Patient Printed Instructions: Knee Replacement (DC)
[2018-03-09] MEDS: Lactobacillus Acidophilus/L. Spores Tablet PO SCH (08:00)
[2018-03-09] MEDS: Miconazole 2% Cream 15 GM Tube TOPICAL SCH (09:00)
[2018-03-09] MEDS: Senna/Docusate Sodium 8.6/50 MG Tablet PO SCH (09:20)
[2018-03-09 10:06] VITALS: BP 149/70; PULSE 72; TEMP 98.5; O2SAT 98
== END 2018-03-09 11:19 ==
LOC: HSDI 09:36 → N03 16:41 → N06 17:12 → HSDI 03-07 09:36 → UNDODISIN 03-07 15:00 → N03 03-07 16:41 → N06 03-07 17:12
PROVIDERS: ADMIT Orthopaedic Surgery Sports Medicine; ATTEND Orthopaedic Surgery Sports Medicine